=== PATIENT | female | born 1935 | race Caucasian/White ===

== ENCOUNTER → 2017-06-19 | Outpatient (CLI) | payer MEDICARE, BC, OTHER ==
[~2017-06-19] MED LIST: ACETAMINOPHEN-1 EAC1 PO; ALEVE220 M1 PO; ASPIRIN81 M2 PO; ATROVENT30 ML IH; AUGMENTIN 875-1 EACH PO; CEFPODOXIME PR200 M1 PO; CRESTOR10 MG PO; DOXYCYCLINE 10100 MG PO; DUONEB 2.5-0.5 M3 ML INH; GUAIFENESIN-CODE5 ML PO; IBUPROFEN 800800 M1 PO; KEFLEX500 M1 PO; KEFLEX500 MG PO; MELATONIN3 MG PO; MUCINEX TA600 MG/TA1 PO; MUCINEX600 MG; MUCINEX600 MG PO; NORCO 5-325 TA1 EACH PO; NYSTATIN100000 UNI PO; POTASSIUM20 OR; PREDNISONE 10 M10 MG PO; PREMARIN0.3 MG; PROAIR HFA8.5 GM; PROAIR HFA8.5 GM IH; PROBIOTIC1 EAC1 PO; PROTONIX40 M1 PO; RANITIDINE 150150 MG PO; SINGULAIR 10 MG10 M1; SINGULAIR 10 MG10 M1 PO; SYMBICORT160 MCG/4.; SYMBICORT160 MCG/4. INH; TESSALON PERLE100 MG PO; TRIAMTERENE-HC1 EAC1 PO; ZANTAC 150MG T150 M1 PO; ZOFRAN ODT4 MG PO; [UNRECOGNIZED DRUG - REMARK]
== END ==
LOC: M.WC 00:06
DX: S81.801D Unspecified open wound, right lower leg, subsequent encounter (principal); M19.90 Unspecified osteoarthritis, unspecified site; J43.9 Emphysema, unspecified; Z87.891 Personal history of nicotine dependence; Z90.710 Acquired absence of both cervix and uterus; Z98.49 Cataract extraction status, unspecified eye; X58.XXXD Exposure to other specified factors, subsequent encounter

== ENCOUNTER → 2017-06-26 | Outpatient (CLI) | payer MEDICARE, BC, OTHER | LOC: M.WC 01:54 | DX: S81.801D Unspecified open wound, right lower leg, subsequent encounter (principal); J43.9 Emphysema, unspecified; M19.90 Unspecified osteoarthritis, unspecified site; Z87.891 Personal history of nicotine dependence; Z90.710 Acquired absence of both cervix and uterus; X58.XXXD Exposure to other specified factors, subsequent encounter ==

== ENCOUNTER 2017-08-09 10:16 | Inpatient (IN) | payer MEDICARE, BC, OTHER ==
[~2017-08-09] VITALS: Ht 162.6 cm; Wt 77.6 kg
[~2017-08-09 10:16] MED LIST changes: -DOXYCYCLINE 10100 MG PO; -GUAIFENESIN-CODE5 ML PO; -MELATONIN3 MG PO; -MUCINEX600 MG PO; -NYSTATIN100000 UNI PO; -PROBIOTIC1 EAC1 PO; -TESSALON PERLE100 MG PO; -ZOFRAN ODT4 MG PO
[2017-08-09 10:30] VITALS: BP 138/72
[2017-08-09 11:04] LABS: ABSOLUTE BASOPHILS 0.1 thou/uL (0.0-0.2); ABSOLUTE EOSINOPHILS 0.1 thou/uL (0.0-0.7); ABSOLUTE LYMPHOCYTES 1.2 thou/uL (0.8-5.3); ABSOLUTE MONOCYTES 0.4 thou/uL (0.0-1.2); ABSOLUTE NEUTROPHILS 4.7 thou/uL (1.6-8.1); BASOPHILS 0.8 %; HEMATOCRIT 41.5 % (37.0-47.0); HEMOGLOBIN 14.1 gm/dL (12.0-15.0); LYMPHOCYTES 18.9 %; MCH 32.4 pg (26.0-34.0); MCHC 33.8 g/dL (28.0-37.0); MCV 95.6 fL (80.0-100.0); MONOCYTES 6.2 %; MPV 7.9 fl. (7.2-11.1); NUCLEATED RBCS 0 /100WBC; PLATELET COUNT* 233 thou/uL (150-400); POLYS 72.1 %; RBC 4.34 mil/uL (4.20-5.00); RDW-CV 13.1 % (10.5-14.5); WBC 6.6 thou/uL (4.0-11.0)
[2017-08-09 11:11] LABS: ANION GAP 7 mmol/L (7-16); BUN 10 mg/dL (7-18); CHLORIDE 101 mmol/L (98-107); CO2 31 mmol/L (21-32); CREATININE 0.9 mg/dL (0.6-1.3); GLUCOSE 106 mg/dL (70-99); POTASSIUM 3.3 mmol/L (3.5-5.1); SODIUM 139 mmol/L (136-145)
[2017-08-09 11:23] LABS: ALBUMIN 3.6 g/dL (3.4-5.0); ALKALINE PHOSPHATASE 145 U/L (46-116); NT-PRO BRAIN NAT PEPTIDE 193 pg/mL (<300); SGOT 132 U/L (15-37); SGPT 167 U/L (30-65); TOTAL BILIRUBIN 0.5 mg/dL (<0.1-1.0); TOTAL PROTEIN 6.8 g/dL (6.4-8.2); TROPONIN-I LEVEL <0.06 ng/mL (<0.06)
[2017-08-09 12:45] LABS: INFLUENZA A ANTIGEN None Detected (None Detect); INFLUENZA B ANTIGEN None Detected (None Detect)
[2017-08-09 15:41] VITALS: BP 139/61
[2017-08-09 15:55] VITALS: BP 152/60
--- NOTE | 2017-08-09 16:10 | EKG ---
[place] [address] ELECTROCARDIOGRAM REPORT Name: BRETT BAUMAN Room: [address] ADM IN M.R.#: [id number] Admission: 08/09/17 Attend Phys: Simone Cook Discharge: Date of : 37 Report #: [id number] THIS REPORT FOR: //name// 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 : 1935 Requested By: Facundo Baer Order Number: [id number] MD: Russ Reagan Measurements Intervals [place] Rate: 121 P: 64 IL: 152 QRS: 241 QRSD: 83 T: 61 QT: 324 QTc: 460 Interpretive Statements Sinus tachycardia Probable right ventricular hypertrophy Inferior infarct, old Compared to ECG 03/06/2015 16:47:17 Myocardial infarct finding now present Sinus rhythm no longer present Brett pike Electronically Signed On 08-09-2017 16:10:29 RODEO CLOWN by Russ Reagan [email or web address] <ELECTRONICALLY SIGNED> By: Russ Reagan MD, FACC 08/09/17 1610 1055 1055 Russ Reagan MD, [facility] /EPI
[2017-08-09 20:00] VITALS: BP 152/73
[2017-08-09] MEDS ORDERED: PROBIOTIC1 EAC1 PO (20:37)
[2017-08-09] MEDS ORDERED: MELATONIN3 MG PO (20:38)
[2017-08-09 23:26] VITALS: BP 161/92
[2017-08-10 04:29] VITALS: BP 141/48
[2017-08-10 07:40] VITALS: BP 97/58
[2017-08-10 09:03] LABS: CALCIUM 8.8 mg/dL (8.5-10.1); CREATININE 0.8 mg/dL (0.6-1.3); MAGNESIUM 2.1 mg/dL (1.8-2.4); POTASSIUM 3.6 mmol/L (3.5-5.1)
[2017-08-10 12:17] VITALS: BP 135/61
[2017-08-10 18:44] VITALS: BP 161/58
[2017-08-10 19:35] VITALS: BP 164/80
[2017-08-10 23:07] LABS: HEPATITIS B SURFACE AG Negative (Negative)
[2017-08-11] VITALS (7 sets, daily range): BP systolic 141–182; BP diastolic 67–78
[2017-08-11 05:39] LABS: ALBUMIN 3.1 g/dL (3.4-5.0); CALCIUM 8.9 mg/dL (8.5-10.1); CREATININE 0.8 mg/dL (0.6-1.3); POTASSIUM 3.9 mmol/L (3.5-5.1); TOTAL BILIRUBIN 0.2 mg/dL (<0.1-1.0); TOTAL PROTEIN 6.1 g/dL (6.4-8.2)
[2017-08-12 03:57] VITALS: BP 141/60
[2017-08-12 04:40] LABS: HEMATOCRIT 38.4 % (37.0-47.0); MCH 32.2 pg (26.0-34.0); MCHC 33.9 g/dL (28.0-37.0); MCV 95.2 fL (80.0-100.0); MPV 9.4 fl. (7.2-11.1); RBC 4.04 mil/uL (4.20-5.00); RDW-CV 13.2 % (10.5-14.5); WBC 12.7 thou/uL (4.0-11.0)
[2017-08-12 05:06] LABS: ALBUMIN 3.1 g/dL (3.4-5.0); CALCIUM 8.8 mg/dL (8.5-10.1); CREATININE 0.8 mg/dL (0.6-1.3); MAGNESIUM 2.2 mg/dL (1.8-2.4); TOTAL BILIRUBIN 0.3 mg/dL (<0.1-1.0); TOTAL PROTEIN 5.6 g/dL (6.4-8.2)
[2017-08-12 08:00] VITALS: BP 157/68
[2017-08-12 12:05] VITALS: BP 140/77
[2017-08-12 17:59] VITALS: BP 134/67
[2017-08-12 19:40] VITALS: BP 158/53
[2017-08-13] VITALS: BP 145/68
[2017-08-13 04:00] VITALS: BP 142/58
[2017-08-13 08:00] VITALS: BP 170/80
[2017-08-13 12:05] VITALS: BP 148/72
[2017-08-13 15:32] VITALS: BP 144/51
[2017-08-13 19:40] VITALS: BP 165/78
[2017-08-14] VITALS: BP 165/54
[2017-08-14 04:01] VITALS: BP 144/56
[2017-08-14 08:00] VITALS: BP 151/66
--- NOTE | 2017-08-14 09:09 | CON ---
[address] [address] CONSULTATION Name: BRETT BAUMAN Room: [address] IN .R.#: [id number] Admission: 08/09/17 Attend Phys: Simone Cook Discharge: Date of : 37 Report #: [id number] THIS REPORT FOR: //name// CC: Dr. Ana Soliz DATE OF SERVICE: 08/10/2017 REQUESTING PHYSICIAN: Nikko Soliz MD. REASON FOR CONSULTATION: COPD exacerbation. DISCUSSION: The patient is a pleasant 82-year-old woman who was admitted after presenting to the Emergency Department yesterday. She had been ill for the last 4-5 days. Developed cough, low-grade fevers. Was started on a Z-VALENTIN as an outpatient. She was having more trouble with her breathing, was seen in the Emergency Department. Was noted to have O2 saturations in the mid-80s. She was started on oxygen, had imaging studies done in the ED. Given her condition, she was admitted to the hospital. CT angiogram done of her chest was negative for pulmonary emboli. It did show extensive emphysematous changes. Noting, we were asked to see her. She is a former smoker, quitting about 8 years ago. Does have underlying COPD, but it is not clear if she has had any PFTs done in the past. She does not see a yarrow gatherer regularly, though our group has seen her previously when she has been hospitalized. Normally at home, she is on oxygen at night. Typically does not require it during the day. She has nebulizer as well as Symbicort twice a day. She has had her flu shot for the season. She has also had her Pneumovax. PAST MEDICAL HISTORY: COPD is noted. Also, has a history of paroxysmal atrial fibrillation, cataract surgery, cholecystectomy, appendectomy, prior hysterectomy, GERD, prior episodes of pneumonia and COPD exacerbation. No prior history of thromboembolic disease. SOCIAL HISTORY: Former smoker as noted. No smokers at home at this time. FAMILY HISTORY: Positive for COPD. REVIEW OF SYSTEMS: A 12-point ROS was done. No positives above. She denies having nausea, vomiting or diarrhea with this acute illness. She does note son did have a "cold" but he was not significantly ill. She has had no recent travel. No recent falls. Denies any syncopal episodes. Denies any palpitations or complaints of chest pain. No issues with lower extremity edema. PHYSICAL EXAMINATION: [place] [address] CONSULTATION Name: BRETT BAUMAN Room: [address]#: [id number] Admission: 08/09/17 Attend Phys: Simone Cook Discharge: Date of : 36 Report #: [id number] GENERAL APPEARANCE: A woman who looks stated age. Alert, cooperative. She is sitting up, has O2 running via nasal cannula. She is alert, conversant, able to speak in full sentences. HEENT: Head is normocephalic. Sclerae appear nonicteric. Mucous membranes a little dry, but no thrush is seen. NECK: Negative for adenopathy. No JVD is noted. HEART: Regular. She does have an occasional extrasystole noted. There is a grade 1/6 systolic murmur. No S3 is heard. LUNGS: Show breath sounds to be diminished. She has a prolonged expiratory phase. She does have a few faint late expiratory wheezes heard. Excursion is equal. No CVA tenderness. ABDOMEN: Soft, no appreciable hepatosplenomegaly. EXTREMITIES: She has no clubbing, does have some arthritic changes noted of her hands. Radial pulses are present. Lower extremities, skin turgor is fair. No calf tenderness. Moving all extremities. NEUROLOGIC: She is alert and oriented x 3. LABORATORY AND X-RAY FINDINGS: Did have a CT angiogram done of her chest as noted above. Negative for PE. No masses are seen. Emphysematous changes noted. On her chemistry, BUN is 10, creatinine 0.9, potassium was 3.3, alkaline phosphatase 145, ALT 167, albumin 3.6, AST 132. ProBNP 193. White blood cell count of 6600, hemoglobin 14.1, hematocrit of 41.5, platelets 233,000. Influenza screen was negative. IMPRESSION: 1. Chronic obstructive pulmonary disease exacerbation. Has already improved today relative to admission yesterday. No definite infiltrates noted on her chest x-ray or CT scan. Baseline, suspect she has at least moderate disease. 2. History of nocturnal hypoxemia. RECOMMENDATIONS: 1. Continue with her IV steroids, DuoNeb every 4 hours. She is on budesonide at this time. We will also add Brovana since she is on Symbicort at home. 2. Wean O2 during the day. 3. Hopefully will only require a couple of days of inpatient therapy. 4. Consider full PFTs in the future once she is over this acute event. <ELECTRONICALLY SIGNED> By: Treva Bashir MD 08/14/17 0909 0758 [id number] Shafer MD /nt
[2017-08-14] MEDS ORDERED: GUAIFENESIN-CODE5 ML PO (15:30)
[2017-08-14 15:31] VITALS: BP 151/66
[2017-08-14] MEDS ORDERED: TESSALON PERLE100 MG PO (15:31)
[2017-08-14 16:00] VITALS: BP 167/77
[2017-08-14 20:10] VITALS: BP 152/77
[2017-08-15] VITALS: BP 158/67
[2017-08-15 04:03] VITALS: BP 147/62
[2017-08-15 08:00] VITALS: BP 141/49
[2017-08-15 12:00] VITALS: BP 139/58
[2017-08-15] MEDS ORDERED: DOXYCYCLINE 10100 MG PO (12:15)
[2017-08-15] MEDS ORDERED: NYSTATIN100000 UNI PO (12:31)
[2017-08-15] MEDS ORDERED: PREDNISONE 10 M10 MG PO (12:41)
== END 2017-08-15 14:43 | disposition home or self-care (01) | DRG 441 ==
LOC: M.ERS 10:16 → M.2W 11:58 → M.TBA-ER 11:58 → M.2W 15:51
PROVIDERS: Emergency Medicine Emergency Medical Services; Internal Medicine; ADMIT Internal Medicine
DX: B17.9 Acute viral hepatitis, unspecified (principal); J96.21 Acute and chronic respiratory failure with hypoxia; J44.1 Chronic obstructive pulmonary disease with (acute) exacerbation; B37.0 Candidal stomatitis; R65.10 Systemic inflammatory response syndrome (SIRS) of non-infectious origin without acute organ dysfunction; K75.81 Nonalcoholic steatohepatitis (NASH); E87.6 Hypokalemia; I10 Essential (primary) hypertension; I48.0 Paroxysmal atrial fibrillation; K21.9 Gastro-esophageal reflux disease without esophagitis; M19.90 Unspecified osteoarthritis, unspecified site; Z90.710 Acquired absence of both cervix and uterus; Z90.89 Acquired absence of other organs; Z90.49 Acquired absence of other specified parts of digestive tract; Z98.49 Cataract extraction status, unspecified eye; Z87.01 Personal history of pneumonia (recurrent); Z79.899 Other long term (current) drug therapy; Z88.8 Allergy status to other drugs, medicaments and biological substances; Z87.891 Personal history of nicotine dependence; Z83.6 Family history of other diseases of the respiratory system

== ENCOUNTER 2017-10-03 17:00 | Inpatient (IN) | payer MEDICARE, BC, OTHER ==
[~2017-10-03] VITALS: Ht 157.5 cm; Wt 71.7 kg
[~2017-10-03 17:00] MED LIST changes: +DOXYCYCLINE 10100 MG PO; +GUAIFENESIN-CODE5 ML PO; +MELATONIN3 MG PO; +NYSTATIN100000 UNI PO; +PROBIOTIC1 EAC1 PO; +TESSALON PERLE100 MG PO
[2017-10-03 17:09] VITALS: BP 176/79
[2017-10-03 18:08] LABS: HEMATOCRIT 51.2 % (37.0-47.0); HEMOGLOBIN 17.3 gm/dL (12.0-15.0); MCH 32.3 pg (26.0-34.0); MCHC 33.7 g/dL (28.0-37.0); MPV 8.2 fl. (7.2-11.1); NUCLEATED RBCS 0 /100WBC; PLATELET COUNT* 256 thou/uL (150-400); RBC 5.33 mil/uL (4.20-5.00); RDW-CV 13.9 % (10.5-14.5); WBC 10.7 thou/uL (4.0-11.0)
[2017-10-03 18:16] LABS: CALCIUM 9.8 mg/dL (8.5-10.1); CREATININE 1.2 mg/dL (0.6-1.3)
[2017-10-03 18:18] LABS: POTASSIUM 3.8 mmol/L (3.5-5.1)
[2017-10-03 18:21] LABS: ALBUMIN 3.9 g/dL (3.4-5.0); TOTAL BILIRUBIN 0.8 mg/dL (<0.1-1.0); TOTAL PROTEIN 7.2 g/dL (6.4-8.2)
[2017-10-03 18:38] LABS: ABSOLUTE LYMPHOCYTES 0.2 thou/uL (0.8-5.3); ABSOLUTE MONOCYTES 0.3 thou/uL (0.0-1.2); ABSOLUTE NEUTROPHILS 10.2 thou/uL (1.6-8.1)
[2017-10-03 20:45] VITALS: BP 159/90
[2017-10-04] VITALS: BP 153/60
[2017-10-04 04:00] VITALS: BP 137/63
--- NOTE | 2017-10-04 06:23 | NUR ---
PT TO FLOOR 2100, A&O X4 CALM COOPERITVE. PAIN IN ABD, PARTIAL RELIEF NOTED WITH MEDICATION. ST ON THE MONITOR. FLUIDS. VITALS WNL. SEE MAR. SEE CHARTING. FALL PRECAUTIONS IN PLACE. HOURLY ROUNDING FOR SAFETY.
[2017-10-04 08:00] VITALS: BP 140/56
[2017-10-04 11:30] VITALS: BP 147/74
--- NOTE | 2017-10-04 14:34 | NUR ---
CM ASSESSMENT: Pt known to this CM from previous hospital stay. Pt is A&O. Resides at home with her . Independent with ADLs. Wears home o2 at [facility] only. No hx of HH or SNF. Supportive family, son is a nurse. Goal is to return home once medically stable for dc.
[2017-10-04 16:12] VITALS: BP 142/61
--- NOTE | 2017-10-04 17:45 | EKG ---
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 : 1935 Requested By: Osmar Paniagua Order Number: [id number] MD: Elliot Vicente Measurements Intervals [place] Rate: 119 P: 86 W[place]: 184 QRS: 240 QRSD: 86 T: 37 QT: 316 QTc: 445 Interpretive Statements Sinus tachycardia Right atrial enlargement Right ventricular hypertrophy Inferior infarct, old possible Baseline wander in lead(s) V6 Compared to ECG 08/09/2017 10:55:54 Atrial abnormality now present Myocardial infarct finding still present Electronically Signed On 10-04-2017 17:45:40 CDT by Elliot Vicente [email or web address] <ELECTRONICALLY SIGNED> By: Elliot Vicente MD, [facility] 10/04/17 1745 181 181 Elliot iVcente MD, [facility] /EPI
--- NOTE | 2017-10-04 18:14 | NUR ---
RECEIVED REPORT. ASSUMED CARE OF PT AROUND 0730. PT A&O X4, VSS. O2 SAT 94% ON RA. PT DROWSY THIS SHIFT AND HAS RESTED FREQUENTLY. MANAGER FIELD SERVICES IN PLACE TRACING SR TO ST WITH NO CHANGES THIS SHIFT. AM ASSESSMENT AND VITALS COMPLETED CHARTED. PT C/O NAUSEA TODAY AND RECEIVECD ZOFRAN X2 WITH PARTIAL RELIEF EACH TIME. PT ALSO REPROTED HEADACHE AND RECEIVED IV PAIN MEDICATION WITH RELIEF THIS AM. PT REPORTED RUQ PAIN THIS EVENING AND RECEIVED IV PAIN MEDICATION. PT ON CLEAR LIQUID DIET, BUT UNABLE TO KEEP EVERYTHING DOWN - HAS DRYHEAVED FREQUENTLY AND VOMITTED TWICE THIS SHIFT, SMALL AMOUNT OF EMESIS EACH TIME. PT UP TO BEDSIDE COMMODE WITH ASSIST X1 TO VOID, NO ISSUES. PT DID HAVE DIARRHEA THIS AFTERNOON MIXED WITH URINE - UNABLE TO OBTAIN STOOL SAMPLE. SON VISITED THIS AFTERNOON. PT CURRENTLY RESTING IN BED. CALL LIGHT IS WITHIN REACH. FALL PRECAUTIONS ARE IN PLACE. HOURLY ROUNDING PERFORMED. WCTM FOR DURATION OF SHIFT.
[2017-10-05 00:04] VITALS: BP 147/45
[2017-10-05 01:31] LABS: URINE BILIRUBIN NEGATIVE (Negative); URINE BLOOD TRACE (Negative); URINE CLARITY CLEAR; URINE COLOR YELLOW; URINE GLUCOSE-RANDOM NEGATIVE (Negative); URINE KETONES NEGATIVE (Negative); URINE LEUKOCYTES-REFLEX NEGATIVE (Negative); URINE NITRITE-REFLEX NEGATIVE (Negative); URINE PROTEIN NEGATIVE (Negative); URINE UROBILINOGEN 0.2 E.U./dl (0.2-1.0)
[2017-10-05 03:52] VITALS: BP 134/48
--- NOTE | 2017-10-05 05:44 | NUR ---
A&O X4 CALM COOPERITVE. REPORTS HEADACHE RELIEF NOTED WITH MEDICATION. SR ON THE MONITOR. STAND BY ASSIST. RA, PRN O2. FLUIDS. UA COLLECTED. VITALS WNL. SEE MAR. SEE CHARTING . FALL PRECAUTINS IN PLACE. HOURLY ROUNDING FOR SAFETY.
[2017-10-05 08:00] VITALS: BP 123/52
[2017-10-05 12:45] LABS: ABSOLUTE LYMPHOCYTES 0.7 thou/uL (0.8-5.3); ABSOLUTE MONOCYTES 0.3 thou/uL (0.0-1.2); ABSOLUTE NEUTROPHILS 2.4 thou/uL (1.6-8.1); BASOPHILS 0.5 %; HEMATOCRIT 35.8 % (37.0-47.0); LYMPHOCYTES 21.2 %; MCH 32.5 pg (26.0-34.0); MCHC 34.4 g/dL (28.0-37.0); MCV 94.6 fL (80.0-100.0); MONOCYTES 9.6 %; MPV 7.7 fl. (7.2-11.1); NUCLEATED RBCS 0 /100WBC; POLYS 67.7 %; RBC 3.78 mil/uL (4.20-5.00); RDW-CV 13.2 % (10.5-14.5); WBC 3.5 thou/uL (4.0-11.0)
[2017-10-05 12:49] VITALS: BP 145/57
[2017-10-05 12:52] LABS: HEMOGLOBIN 12.3 gm/dL (12.0-15.0); PLATELET COUNT* 176 thou/uL (150-400)
[2017-10-05 12:58] LABS: ALBUMIN 2.6 g/dL (3.4-5.0); CREATININE 0.8 mg/dL (0.6-1.3); TOTAL BILIRUBIN 0.3 mg/dL (<0.1-1.0); TOTAL PROTEIN 5.1 g/dL (6.4-8.2)
[2017-10-05 13:02] LABS: POTASSIUM 2.6 mmol/L (3.5-5.1)
[2017-10-05 16:00] VITALS: BP 140/62
--- NOTE | 2017-10-05 18:30 | NUR ---
RECEIVED REPORT. ASSUMED CARE OF PT AROUND 729. PT A&O X4. VSS O2 SAT 95% ON RA. MENTAL HEALTH ORDERLY IN PLACE TRACING SR WITH NO CHANGES THIS SHIFT. AM ASSESSMENT AND VITALS COMPLETED CHARTED. IV INTACT AND INFUSING IVF. PT CONTINUTED TO HAVE N/D TODAY. RECEIVED ZOFRAN WITH PARTIAL RELIEF. STOOL SAMPLE SENT DOWN TO LAB FOR CDIFF SCREEN. PENDING RESULTS. PT ABLE TO EAT A FEW BITES OF MEALS TODAY AND IS TOLERATING FLUIDS - HAS ONLY HAD A VERY MINIMAL AMOUNT OF EMESIS TODAY. GI CONSUTLED. PT REPORTED HEADACHE TODAY THAT HAS BEEN MANAGED WITH PO PAIN MEDICATION. PT UP WITH STANDBY ASSIST TO THE BEDSIDE COMMODE FREQUENTLY TO VOID AND HAVE DIARRHEA. PT TURNING SELF IN THE BED FOR COMFORT. SON VISITED THIS AFTERNOON. PT SLOWLY PROGRESSING. PT CURRENTLY RESTING IN BED. FALL PRECAUTIONS IN PLACE. CALL LIGHT IS WITHIN REACH. HOURLY ROUNDING PERFORMED. WCTM FOR DURATION OF SHIFT.
[2017-10-06 01:13] VITALS: BP 135/58
--- NOTE | 2017-10-06 01:16 | NUR ---
RECIEVED REPORT AT 1930. ASSESSMENT COMPLETED CHARTED. PT SLEEPING AT THIS TIME. REPLACED IV AND PLACED IT IN THE LEFT FOREARM, 22G. ABLE TO MAKE NEEDS KNOWN, CALL LIGHT WITHIN REACH, NO C/O PAIN OR SOA. UP WITH ASSIST, NOTIFIED TO COMMUNICATE WITH STAFF IF FEELING NAUSEOUS, PRN ZOFRAN GIVEN AT BEDTIME. WILL CONTINUE WITH PLAN OF CARE.
[2017-10-06 04:50] VITALS: BP 140/52
--- NOTE | 2017-10-06 07:15 | NUR ---
CHANGE OF SHIFT BEDSIDE REPORT GIVEN PATIENT SEEN AT BEDSIDE AND IN BED RESTING NO REQUESTS AT THIS TIME
[2017-10-06 07:52] LABS: MAGNESIUM 1.7 mg/dL (1.8-2.4)
[2017-10-06 08:00] VITALS: BP 138/56
[2017-10-06 08:10] LABS: POTASSIUM 3.9 mmol/L (3.5-5.1)
[2017-10-06 11:31] VITALS: BP 145/50
[2017-10-06 15:53] VITALS: BP 157/65
--- NOTE | 2017-10-06 18:35 | NUR ---
PATIENT IN BED AND WATCHING TV REMAINS A AND O X 4 SR/1ST DEGR AT TIMES LUNGS CTA/DIM IN BASES/RA FAIR APPETTIE MULTIPLE SMALL LOOSE BMS TODAY GOOD UO, APPROX 300CC+UNMEASURED AMT UP STANDBY OLD, HEALING SCAR L LE IV SITE INFILTRATED L AC, MOIST WARM PACK PLACED NEW IV 22 GA R FA IVF NS AT 100CC/HR C/O GENERALIZED PAIN TREATED HYDROCODONE WITH RELIEF C/O NAUSEA BUT PASSED, REF TREATMENT CALL LIGHT IN REACH AND INSTRUCTION GIVEN AND FOLLOWED GI CONS TODAY
[2017-10-07] VITALS: BP 135/60
--- NOTE | 2017-10-07 02:18 | NUR ---
RECEIVED REPORT AT 1930. ASSESSMENT COMPLETED CHARTED. PT C/O NAUSEA AND GENERALIZED PAIN AND GAVE PRN BEFORE BED. RIGHT AC RUNNING NS AT 100. CDIFF CULTURE CAME BACK NEGATIVE, ISOLATION NO LONGER NEEDED. WILL CONTINUE WITH PLAN OF CARE.
[2017-10-07 04:00] VITALS: BP 147/59
--- NOTE | 2017-10-07 07:15 | NUR ---
CHANGE OF SHIFT, BEDSIDE REPORT GIVEN ASSUMED PATIENT CARE PATIENT SEEN IN BED ASLEEP
[2017-10-07 08:00] VITALS: BP 121/52
[2017-10-07 12:15] VITALS: BP 140/56
[2017-10-07 15:37] VITALS: BP 138/66
--- NOTE | 2017-10-07 17:45 | NUR ---
PATIENT LAYING IN BED AND RESTING A AND O X 4 SR RA POOR APPETITE EMESIS X 1 MULTIPLE BM LOOSE CDIFF SPECIMEN SENT AND CAME BACK NEGATIVE FAIR UO UP STANDBY BSC IV NS AT 100CC/HR FLAGYL AND ROCEPHIN IVP C/O ALICEA THIS AM TREATED AND RELIEVED WITH HYDROCODONE CALL LIGHT IN REACH AND INSTRUCTION GIVEN AND FOLLOWED CONS GI
[2017-10-08] VITALS: BP 137/61
--- NOTE | 2017-10-08 02:07 | NUR ---
RECIEVED REPORT AT 1930. PT C/O NAUSEA AND GENERALIZED UNCOMFORT. ASSESSMENT COMPLETED CHARTED. PT STATES NAUSEA HAS GOTTEN WORSE SINCE BEING IN THE HOSPITAL. GAVE PRN NARCO AND ZOFRAN. PT IS A & O X 4, ABLE TO MAKE NEEDS KNOWN, PT RESTING IN BED AND HAS C/O HEADACHE OF YESTERDAY. WILL CONTINUE TO MONITOR AND WITH PLAN OF CARE.
[2017-10-08 03:57] VITALS: BP 152/60
[2017-10-08 05:08] LABS: HEMATOCRIT 35.2 % (37.0-47.0); HEMOGLOBIN 11.9 gm/dL (12.0-15.0); MCH 31.9 pg (26.0-34.0); MCHC 33.9 g/dL (28.0-37.0); MPV 8.5 fl. (7.2-11.1); RBC 3.74 mil/uL (4.20-5.00); RDW-CV 13.1 % (10.5-14.5); WBC 4.6 thou/uL (4.0-11.0)
[2017-10-08 05:29] LABS: CALCIUM 8.5 mg/dL (8.5-10.1); CREATININE 0.8 mg/dL (0.6-1.3); MAGNESIUM 1.7 mg/dL (1.8-2.4); POTASSIUM 3.4 mmol/L (3.5-5.1)
[2017-10-08 08:00] VITALS: BP 156/73
[2017-10-08 11:55] VITALS: BP 129/57
--- NOTE | 2017-10-08 15:01 | CON ---
[address] [address] CONSULTATION Name: BRETT BAUMAN Room: [address] IN .R.#: [id number] Admission: 10/03/17 Attend Phys: Simone Cook Discharge: Date of : 36 Report #: [id number] THIS REPORT FOR: //name// CC: Ismael Soliz MD DATE OF SERVICE: 10/06/2017 REQUESTING PHYSICIAN: Dr. Nikko Soliz. REASON FOR CONSULT: Nausea, vomiting and diarrhea. HISTORY OF PRESENT ILLNESS: This is an 82-year-old female who presented to the hospital with symptoms of nausea, vomiting, diarrhea and abdominal pain, which started at 8 a.m. before her admission. The patient reports that a week ago, her son who is a transplant patient was presented with similar symptoms and was hospitalized at . He is feeling back to normal. The patient denies any hematochezia, melena or hematemesis. She continues to have mild nausea and reports that she had 1 bowel movement this morning. The stool has been sent for C. diff and pending. PAST MEDICAL HISTORY: Significant for hypertension, COPD, AFib, history of gallbladder disease, status post cholecystectomy and appendectomy. ALLERGIES: SIGNIFICANT TO DIPHENHYDRAMINE, FLUTICASONE, NICOTINE, SOLU-MEDROL, MOXIFLOXACIN, AND EPINEPHRINE. MEDICATIONS: Please refer to hospital MAR. SOCIAL HISTORY: The patient lives at home. Denies tobacco or alcohol use. FAMILY HISTORY: Negative for GI malignancy. PHYSICAL EXAMINATION: VITAL SIGNS: Reveals blood pressure of 138/56, respirations 19, pulse 81, temperature 98.4. LUNGS: Clear. CARDIOVASCULAR: Regular. ABDOMEN: Soft, tender to palpation in all 4 quadrants. Bowel sounds are positive. NEUROLOGIC: The patient is alert and oriented x 3. LABORATORY DATA: Reveal sodium of 141, potassium 3.9, BUN is 7, creatinine 0.8, glucose 109. AST is 47, ALT is 28, alkaline phosphatase 37, lipase 53, total bilirubin is 0.3, albumin 2.6. WBC is 3.5 with hemoglobin of 12.3 [place] [address] CONSULTATION Name: BRETT BAUMAN Room: [address] IN [facility]#: [id number] Admission: 10/03/17 Attend Phys: Simone Cook Discharge: Date of : 36 Report #: [id number] 176. IMAGING: CT of abdomen and pelvis was obtained on her admission. There was fluid within the nondilated loops of small and large bowel suggesting enteritis and diarrhea. There was no evidence of obstruction. ASSESSMENT AND PLAN: The patient with acute symptoms of nausea, vomiting, diarrhea and abdominal pain whose son has gone through the similar symptoms a week ago. She most probably has viral gastroenteritis. She has been prophylactically started on IV antibiotics. She also has some electrolyte disturbance such as hyperkalemia. We will replace the potassium and give her IV fluids. I believe that she will improve in the next couple of days and possibly discharge home soon. We will continue to monitor her symptoms. <ELECTRONICALLY SIGNED> By: Skylar Arroyo MD 10/08/17 1501 1110 [id number] Arroyo MD /nt
[2017-10-08 15:16] VITALS: BP 143/68
--- NOTE | 2017-10-08 17:18 | NUR ---
PT UP IN ROOM WITH STEADY GAIT. PT DENIES DIARRHEA. MINIMAL AMT OF NAUSEA. TOLERATING PO WELL
[2017-10-08 20:00] VITALS: BP 166/76
[2017-10-09 00:03] VITALS: BP 158/56
--- NOTE | 2017-10-09 03:01 | NUR ---
PT ALERT ORIENTED. INITAL ASSESSMENT PT AGGITATED BECAUSE SHE HAD ASKED FOR A POPSICLE. [facility] NOTIFIED HOUSE SUP BUT CODE WAS CALLED OVERHEAD. SLUSH FROM [facility] PROVIDED. PT SEEMED SATISFIED WITH THAT. UP AD [place] IN ROOM. L ARM RED PT STATED IT WAS FROM IV INFILTRATE. ON RA. DENIES PAIN. NO BM THIS SHIFT. WILL CONTINUE TO MONITOR.
[2017-10-09 03:31] VITALS: BP 127/42
[2017-10-09 06:01] LABS: CALCIUM 9.1 mg/dL (8.5-10.1); CREATININE 0.7 mg/dL (0.6-1.3); POTASSIUM 3.9 mmol/L (3.5-5.1)
[2017-10-09 08:00] VITALS: BP 135/49
[2017-10-09] MEDS ORDERED: ZOFRAN ODT4 MG PO (09:42)
--- NOTE | 2017-10-09 10:58 | NUR ---
ASSUMED CARE OF PATIENT THIS AM AT 0730. PATIENT IS ALERT AND ORIENTED X 4. SHE C/O A HEADACHE THIS AM. PATIENT MEDICATED FOR HER HEAD ACHE. DR IN TO ROUND AND DISCHARGE ORDERS WERE WRITTEN. PATIENT IS TO DISCHARGE TO HOME.
[2017-10-09 12:25] VITALS: BP 135/49
[2017-10-09] MEDS ORDERED: MUCINEX600 MG PO (12:30)
== END 2017-10-09 13:25 | disposition home or self-care (01) | DRG 372 ==
LOC: M.ERS 17:00 → M.2W 18:43 → M.TBA-ER 18:43 → M.2W 20:54
PROVIDERS: Family Medicine; Internal Medicine; Physician Assistant; ADMIT Internal Medicine
DX: A04.9 Bacterial intestinal infection, unspecified (principal); R65.10 Systemic inflammatory response syndrome (SIRS) of non-infectious origin without acute organ dysfunction; E44.0 Moderate protein-calorie malnutrition; J44.9 Chronic obstructive pulmonary disease, unspecified; I10 Essential (primary) hypertension; I48.0 Paroxysmal atrial fibrillation; K21.9 Gastro-esophageal reflux disease without esophagitis; R00.0 Tachycardia, unspecified; E87.5 Hyperkalemia; E83.42 Hypomagnesemia; T37.8X5A Adverse effect of other specified systemic anti-infectives and antiparasitics, initial encounter; M19.90 Unspecified osteoarthritis, unspecified site; Z90.710 Acquired absence of both cervix and uterus; Z90.49 Acquired absence of other specified parts of digestive tract; Z98.49 Cataract extraction status, unspecified eye; Z88.1 Allergy status to other antibiotic agents; Z88.8 Allergy status to other drugs, medicaments and biological substances; Z87.891 Personal history of nicotine dependence; Z82.49 Family history of ischemic heart disease and other diseases of the circulatory system; Z91.81 History of falling; Z68.28 Body mass index [BMI] 28.0-28.9, adult

== ENCOUNTER → 2017-11-16 | Outpatient (CLI) | payer MEDICARE, BC, OTHER ==
[~2017-11-16] MED LIST changes: +MUCINEX600 MG PO; +ZOFRAN ODT4 MG PO
== END ==
LOC: M.LAB 01:30
DX: Z01.812 Encounter for preprocedural laboratory examination (principal); J44.9 Chronic obstructive pulmonary disease, unspecified

== ENCOUNTER 2020-07-05 17:47 | Inpatient (IN) | payer MEDICARE, BC ==
[~2020-07-05] VITALS: Ht 165.1 cm; Wt 68.3 kg
[2020-07-05 17:58] VITALS: BP 104/72
[2020-07-05] MEDS ORDERED: MONTELUKAST SODI4 M1 PO (18:31)
[2020-07-05] MEDS ORDERED: AZITHROMYCIN500 MG PO (18:32)
[2020-07-05] MEDS ORDERED: DEXAMETHASONE6 MG PO (18:32)
[2020-07-05] MEDS ORDERED: OMEPRAZOLE 20 M20 M1 PO (18:33)
--- NOTE | 2020-07-05 19:09 | NUR ---
UNSUCCESSFUL WITH IV ATTEMPTS PER 3 FARIDA RN AND PER [address] KIMBLE NOTIFIED. UNSUCCESSFUL IV ATTEMPTS PER DR KIMBLE X3 3 VIA ULTRASOUND. FULL NURSING REPORT GIVEN TO TANA MALLOY RN AND NOTIFIED OF UNSUCCESSFUL IV ATTEMPTS, VERBALIZED UNDERSTANDING
--- NOTE | 2020-07-05 19:25 | NUR ---
ATTEMPTING TO START IVAND DRAW LABS ON PT. IT WAS NOTED ON THE [facility]AL [place] THAT PT HAS HAD AN EKG CHANGE. REPEAT EKG COMPLETED AND CODE STEMI CALLED AT 194. CENTRAL LINE LEFT CHEST PLACED PER DR TRONCOSO, LABS COLLECTED AND SENT TO LAB. PT ATTACHED TO MONITOR AND REMAINS ON BIPAP. UNABLE TO START HEPARIN D/T NO IV ACCESS THAT WAS FUNCTIONING PRIOR TO GENERAL MAINTENANCE MECHANIC ARRIVAL.. XRAY HERE TO VERIFY PLACEMENT AND GENERAL MAINTENANCE MECHANIC ASKED THEM TO DO INLTHE GENERAL MAINTENANCE MECHANIC, PT DCD TO GENERAL MAINTENANCE MECHANIC ON [facility] AT 2044 VIA STRETCHER ON BIPAP AT THIS TIME.
[2020-07-05 20:47] LABS: HEMATOCRIT 47.9 % (37.0-47.0); HEMOGLOBIN 15.6 gm/dL (12.0-15.0); MCHC 32.6 g/dL (28.0-37.0); MCV 94.9 fL (80.0-100.0); MPV 10.2 fl. (7.2-11.1); NUCLEATED RBCS 0 /100WBC; PLATELET COUNT* 392 thou/uL (150-400); RBC 5.05 mil/uL (4.20-5.00); RDW-CV 13.8 % (10.5-14.5); WBC 15.2 thou/uL (4.0-11.0)
[2020-07-05 20:55] LABS: ANION GAP 19 mmol/L (7-16); BUN 80 mg/dL (7-18); CALCIUM 8.1 mg/dL (8.5-10.1); CHLORIDE 98 mmol/L (98-107); CO2 15 mmol/L (21-32); GLUCOSE 57 mg/dL (70-99); SODIUM 132 mmol/L (136-145)
[2020-07-05 20:59] LABS: APTT 40.4 Seconds (25.0-31.3); INR 3.1; PROTIME 30.6 Seconds (9.20-11.50)
[2020-07-05 21:06] LABS: ALBUMIN 2.2 g/dL (3.4-5.0); ALKALINE PHOSPHATASE 118 U/L (46-116); NT-PRO BRAIN NAT PEPTIDE > 35000 pg/mL (<300); SGOT 844 U/L (15-37); SGPT 654 U/L (30-65); TOTAL PROTEIN 5.1 g/dL (6.4-8.2)
[2020-07-05 21:21] LABS: ABSOLUTE LYMPHOCYTES 0.3 thou/uL (0.8-5.3); ABSOLUTE MONOCYTES 1.4 thou/uL (0.0-1.2); ABSOLUTE NEUTROPHILS 13.5 thou/uL (1.6-8.1)
[2020-07-05 21:22] LABS: PLATELET ESTIMATE ADEQUATE
[2020-07-05 21:30] VITALS: BP 106/70
[2020-07-05 22:04] LABS: BE -18.6 mmol/L (-2 to +3)
[2020-07-05 22:07] LABS: pH 7.174 (7.340-7.450)
[2020-07-05 22:08] LABS: PO2 269.7 mmHg (75.0-100.0)
[2020-07-05 22:43] VITALS: BP 105/87
[2020-07-05 22:53] VITALS: BP 61/39
[2020-07-06] VITALS (27 sets, daily range): BP systolic 55–156; BP diastolic 20–54
[2020-07-06 00:03] LABS: HEMATOCRIT 41.2 % (37.0-47.0); MCH 31.4 pg (26.0-34.0); MCHC 32.5 g/dL (28.0-37.0); MCV 96.6 fL (80.0-100.0); MPV 9.8 fl. (7.2-11.1); RBC 4.26 mil/uL (4.20-5.00); RDW-CV 13.7 % (10.5-14.5); WBC 13.3 thou/uL (4.0-11.0)
[2020-07-06 00:10] LABS: HEMOGLOBIN 13.4 gm/dL (12.0-15.0)
[2020-07-06 01:43] LABS: BE -23.2 mmol/L (-2 to +3); PCO2 35.7 mmHg (35.0-45.0)
[2020-07-06 01:45] LABS: pH 6.964 (7.340-7.450)
[2020-07-06 01:46] LABS: CALCIUM 6.6 mg/dL (8.5-10.1); CREATININE 2.2 mg/dL (0.6-1.3); PO2 166.8 mmHg (75.0-100.0)
[2020-07-06 01:48] LABS: POTASSIUM 6.3 mmol/L (3.5-5.1)
[2020-07-06 02:02] LABS: MAGNESIUM 2.7 mg/dL (1.8-2.4); PHOSPHORUS* 9.5 mg/dL (2.5-4.9)
[2020-07-06 05:00] LABS: HEMATOCRIT 39.6 % (37.0-47.0); HEMOGLOBIN 12.7 gm/dL (12.0-15.0); MCH 30.7 pg (26.0-34.0); RBC 4.12 mil/uL (4.20-5.00); RDW-CV 13.8 % (10.5-14.5); WBC 18.6 thou/uL (4.0-11.0)
[2020-07-06 05:13] LABS: ANION GAP 22 mmol/L (7-16); BUN 80 mg/dL (7-18); CALCIUM 7.5 mg/dL (8.5-10.1); CHLORIDE 101 mmol/L (98-107); CHOLESTEROL 80 mg/dL (<200); CO2 14 mmol/L (21-32); CREATININE 2.5 mg/dL (0.6-1.3); GLUCOSE 166 mg/dL (70-99); HDL CHOLESTEROL 11 mg/dL (>40); SODIUM 137 mmol/L (136-145); TC:HDL 7.3 Ratio (Not establshd); TRIGLYCERIDE 406 mg/dL (<150); VLDL 81 mg/dL (<40)
[2020-07-06 05:17] LABS: POTASSIUM 6.1 mmol/L (3.5-5.1); SERUM ASSESSMENT Clear
[2020-07-06 08:12] LABS: PCO2 38.6 mmHg (35.0-45.0); PO2 104.3 mmHg (75.0-100.0)
[2020-07-06 08:14] LABS: pH 7.052 (7.340-7.450)
[2020-07-06 08:32] LABS: HEMATOCRIT 30.6 % (37.0-47.0); MCHC 31.3 g/dL (28.0-37.0); MCV 98.9 fL (80.0-100.0); RBC 3.09 mil/uL (4.20-5.00); RDW-CV 14.4 % (10.5-14.5); WBC 13.7 thou/uL (4.0-11.0)
--- NOTE | 2020-07-06 08:32 | CON ---
[address] [address] CONSULTATION Name: BRETT BAUMAN Room: [address] ADM IN M.R.#: [id number] Admission: 07/05/20 Attend Phys: Perla Varela MD Discharge: Date of : 36 Report #: [id number] THIS REPORT FOR: cc: Stewart Astudillo MD, James MD ~ Meet Foster MD [facility] DATE OF SERVICE: 07/05/2020 HISTORY OF PRESENT ILLNESS: The patient is an 85-year-old white female who I was asked to see in the Emergency Room today after she was noted to have an abnormal ECG. The history is obtained from the patient as well as some old records. The patient was actually admitted here in 2014 with atypical chest pain. She had a history of COPD. She ruled out for a myocardial infarction. She was admitted here in 2018 with COPD exacerbation. She also had pneumonia. The patient was last admitted here in 2018 with pneumonia. She was noted to have permanent atrial fibrillation. The patient was brought to the Emergency Room this evening. She was COVID positive and brought by paramedics. She complained of shortness of breath. She was at [facility]. She became hypoxic and was transferred to the Emergency Room. She was noted to have abnormal EKG. Cardiology consultation was requested. She denies any chest pain, but does complain of shortness of breath and cough. She has had no edema. PAST MEDICAL HISTORY: Significant for hysterectomy, tonsillectomy, appendectomy, cholecystectomy, cataract surgery. She has a history of hypertension, COPD, paroxysmal atrial fibrillation. MEDICATIONS: On admission included omeprazole, aspirin, Crestor, albuterol inhaler. She is no longer on ranitidine, nystatin. ALLERGIES: SHE HAS AN ALLERGY TO NICOTINE AND BENADRYL. SOCIAL HISTORY: She no longer smokes. REVIEW OF SYSTEMS: Cannot be obtained. PHYSICAL EXAMINATION: GENERAL: Revealed an elderly, frail-appearing female, lying in bed. She appeared in moderate respiratory distress. VITAL SIGNS: She had a blood pressure of only 100/60, pulse is 110. She was afebrile. HEENT: She was anicteric. Conjunctivae pink. Mucous membranes were dry. NECK: Veins do not appear distended. CHEST: Revealed distant breath sounds. CARDIOVASCULAR: Regular rate and [place] [address] CONSULTATION Name: BRETT BAUMAN Room: [address]#: [id number] Admission: 07/05/20 Attend Phys: Perla Varela MD Discharge: Date of : 36 Report #: [id number] ABDOMEN: Soft. EXTREMITIES: Had no pitting edema. SKIN: Cool and dry. LABORATORY DATA: Her ECG on admission showed sinus tachycardia, evidence of previous inferior infarction with ST segment elevation in lead V4, V5, V6 as well as V2, V3 and aVF that was new since 2017. She actually had an echocardiogram done in 2015 here at [place] that showed ejection fraction 55%, no significant valvular abnormalities. Her chest x-ray tonight showed normal heart size, hyperinflated lung santoro, consolidation of the lung base, atherosclerosis noted in the aorta. LABORATORY WORK: Her lab work tonight, sodium 132, potassium is 6.0, BUN 80, creatinine 2.0, SGOT 844, SGPT 654. Albumin 2.2. Troponin 0.24. BNP 28. Her NT-proBNP was 35,000. Her white blood cell count was 15.2, hemoglobin 15.6. Her COVID antigen stat test was positive. IMPRESSION AND RECOMMENDATIONS: 1. Abnormal ECG. Recommend urgent cardiac catheterization. 2. Chronic obstructive pulmonary disease. 3. Acute kidney failure. 4. Hyperkalemia. 5. Elevated liver function studies. 6. Hypertension. Suspect sepsis. 7. COVID-19. 8. History of paroxysmal atrial fibrillation. The critical care time spent on this patient was from 09:15 to 10:30. <ELECTRONICALLY SIGNED> By: Meet Foster MD, [facility] 07/06/20 0832 2216 0022Daviarun Foster MD, FAC /nt
[2020-07-06 08:33] LABS: HEMOGLOBIN 9.6 gm/dL (12.0-15.0)
--- NOTE | 2020-07-06 08:36 | NUR ---
PATIENT TO UNIT FROM [facility] AT 2225. PATIENT HYPOTHERMIC, TACHYCARDIC, AND HYPOTENSIVE UPON ARRIVAL. ON BIPAP ON ADMISSION. PATIENT HAS REQUIRED INCREASED DOSES OF VASOPRESSOR SUPPORT TO MAINTAIN BLOOD PRESSURE. FEMORAL SHEATH LEFT IN AFTER CATH PROCEDURE, BEING USED TO MONITOR ARTERIAL BLOOD PRESSURE. PATIENT CANNOT MAINTAIN BLOOD PRESSURE WELL. CURRENT TITRATIONS ON MEDICATIONS ARE LEVOPHED AT 2 MCG/MIN, NEOSYNEPHRINE AT 360 MCG/MIN, DOPAMINE AT 20 MCG/KG/MIN, AND VASOPRESSIN AT 0.04 UNITS/MIN. UNABLE TO KEEP ACCURATE TITRATION RECORD DUE TO PATIENT INSTABILITY. PATIENT HAD TO BE EMERGENTLY INTUBATED AT MIDNIGHT DUE TO DETERIORATING RESPIRATORY STATUS. ATTEMPTED TO CALL OVERNIGHT BUT COULD NOT GET AHOLD OF ANY FAMILY MEMBERS. PATIENT MOTTLED ON ALL EXTREMITIES AND ON TORSO. LIPS AND TOUNGUE TURNING BLACK. [facility] CALLED AT THE END OF SHIFT AND REFERRAL MADE
[2020-07-06 08:53] LABS: CALCIUM 6.8 mg/dL (8.5-10.1); CREATININE 2.6 mg/dL (0.6-1.3); MAGNESIUM 2.7 mg/dL (1.8-2.4)
--- NOTE | 2020-07-06 08:53 | NUR ---
0700 ASSUMED CARE OF PATIENT. SEE DOCUMENTED ASSESSMENT.PT ON 4 PRESSORS AND UNRESPONSIVE. ANURIC
[2020-07-06 08:55] LABS: POTASSIUM 7.7 mmol/L (3.5-5.1)
--- NOTE | 2020-07-06 10:26 | NUR ---
QRS WIDENING OUT. HAVE TALKED TO SPOUSE TWICE AND HE WANTS US TO TRY TO CODE HER AT LEAST ONCE.
--- NOTE | 2020-07-06 10:27 | NUR ---
TO CT. PT WILL GO TO ROOM 219. REPORT CALLED TO BALDEV BURCIAGA
--- NOTE | 2020-07-06 11:13 | NUR ---
1100 CODE CALLED FOR PEA
[2020-07-06 11:57] LABS: BE -18.5 mmol/L (-2 to +3); PO2 103.7 mmHg (75.0-100.0)
--- NOTE | 2020-07-06 11:58 | 2DMMODE ---
[place] [address] 2 D/M-MODE ECHOCARDIOGRAM Name: BRETT BAUMAN Room: [address] IN [facility]#: [id number] Admission: 07/05/20 Attend Phys: Perla Varela, Discharge: Date of : 37 Date of Service: 07/06/20 1158 Report #: [id number] THIS REPORT FOR: cc: Stewart Astudillo MD, James MD Blick,Meet Garces MD [facility] ~ APPROVED REPORT Study performed: 07/06/2020 09:19:50 EXAM: Comprehensive 2D, Doppler, and color-flow Echocardiogram Patient Location: In-Patient Room #: 001 Status: routine BSA: 1.75 HR: 116 bpm BP: 73/35 mmHg Rhythm: Tachycardia Other Information Study Quality: Adequate Indications Acute TX 2D Dimensions IVSd: 15.42 (7-11mm) LVOT Diam: 19.96 (18-24mm) LVDd: 21.31 mm PWd: 17.06 (7-11mm) Ascending Ao: 29.15 (22-36mm) LVDs: 18.91 (25-40mm) Aortic Root: 28.26 mm Volumes Left Atrial Volume (Systole) LA ESV Index: 6.70 mL/m2 Aortic Valve AoV Peak Wil.: 1.37 m/s AO Peak Gr.: 7.50 mmHg LVOT Max P.77 mmHg AO Mean Gr.: 3.27 mmHg LVOT Mean P.01 mmHg LVOT Max V: 0.67 m/s AO V2 VTI: 13.27 cm LVOT Mean V: 0.47 m/s SAADIA (VTI): 2.20 cm2 LVOT V1 VTI: 9.34 [place] [address] 2 D/M-MODE ECHOCARDIOGRAM Name: BRETT BAUMAN Room: [address]#: [id number] Admission: 07/05/20 Attend Phys: Perla Varela, Discharge: Date of : 37 Date of Service: 07/06/20 1158 Report #: [id number] Mitral Valve E/A Ratio: 0.85 MV Decel. Time: 96.40 ms MV E Max Wil.: 0.52 m/s MV PHT: 27.96 ms MVA (PHT): 7.87 cm2 Pulmonary Valve PV Peak Wil.: 0.92 m/s PV Peak Gr.: 3.36 mmHg Left Ventricle The left ventricle is normal size. There is normal LV segmental wall motion. Moderate concentric left ventricular hypertrophy. Left ventricular systolic function is borderline. LVEF is 50-55%. Grade I - abnormal relaxation pattern. Right Ventricle The right ventricle is normal size. The right ventricular systolic function is normal. Atria The left atrium size is normal. The right atrium size is normal. Aortic Valve The Aortic valve is sclerotic. No aortic regurgitation is present. There is no aortic valvular stenosis. Mitral Valve The mitral valve is normal in structure. There is no mitral valve regurgitation noted. No evidence of mitral valve stenosis. Tricuspid Valve The tricuspid valve is normal in structure. There is trace tricuspid valve regurgitation noted. Pulmonic Valve The pulmonary valve is normal in structure. There is no pulmonic valvular regurgitation. Great Vessels The aortic root is normal in size. IVC is normal in size and collapses >50% with inspiration. Pericardium Mildl pericardial [place] [address] 2 D/M-MODE ECHOCARDIOGRAM Name: BRETT BAUMAN Room: [address] IN ..#: [id number] Admission: 07/05/20 Attend Phys: Perla Varela, Discharge: Date of : 37 Date of Service: 07/06/20 1158 Report #: [id number] <Conclusion> Moderate concentric left ventricular hypertrophy. LVEF is 50-55%. The Aortic valve is sclerotic. Mildl pericardial effusion. <ELECTRONICALLY SIGNED> By: Meet Foster MD, [facility] 07/06/20 1158 1158 1158 Meet Foster MD, FACC /INF
[2020-07-06 12:00] LABS: pH 7.111 (7.340-7.450)
--- NOTE | 2020-07-06 13:21 | NUR ---
PT CODED AGAIN AND PRONOUNCED BY DR PRECIADO. SEE CODE BLUE SHEET.
--- NOTE | 2020-07-06 13:33 | EKG ---
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 : 1935 Requested By: Facundo Baer Order Number: [id number] MD: Meet Foster Measurements Intervals [place] Rate: 126 P: 91 MS: 146 QRS: 209 QRSD: 76 T: 60 QT: 288 QTc: 417 Interpretive Statements Sinus tachycardia Consider inferior infarct Anterolateral infarct, possibly acute ST elevation, consider inferior injury Compared to ECG 10/03/2017 18:10:56 ST (T wave) deviation now present Myocardial infarct finding still present Myocardial infarct finding still present Electronically Signed On 07-06-2020 13:33:26 PHYSICIAN PRIMARY [employer]ORTS MEDICINE by Meet Foster [email or web address] <ELECTRONICALLY SIGNED> By: Meet Foster MD, [facility] 07/06/20 1333 1808 1808 Meet Foster MD, [facility] /EPI
--- NOTE | 2020-07-06 13:35 | EKG ---
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: : 1935 Requested By: Facundo Baer Order Number: [id number] [place] MD: Meet Foster Measurements Intervals [place] Rate: 121 P: 33 UT: 139 QRS: 210 QRSD: 72 T: 59 QT: 301 QTc: 427 Interpretive Statements Sinus tachycardia Consider inferior infarct Anterolateral infarct, recent ST elevation, consider inferior injury Compared to ECG 07/05/2020 18:08:48 No significant changes Electronically Signed On 07-06-2020 13:34:53 CREDIT BALANCE SPECIALIST by Meet Foster [email or web address] <ELECTRONICALLY SIGNED> By: Meet Foster MD, [facility] 07/06/20 1334 54 54 Meet Foster MD, [facility] /EPI
--- NOTE | 2020-07-07 08:59 | CON ---
[address] [address] CONSULTATION Name: BRETT BAUMAN Room: [address] IN [facility].#: [id number] Admission: 07/05/20 Attend Phys: Perla Varela MD Discharge: 07/06/20 Date of : 37 Report #: [id number] THIS REPORT FOR: cc: Stewart Astudillo MD, James MD ~ Tona Velez MD DATE OF SERVICE: 07/06/2020 NEPHROLOGY CONSULTATION CONSULTING PHYSICIAN: Dr. Travis. REASON FOR NEPHROLOGY CONSULTATION: Hyperkalemia, metabolic acidosis, anuric, acute kidney injury. REASON FOR ADMISSION: Hypoxia. HISTORY OF PRESENT ILLNESS: This is an 85-year-old female who lives in a nursing facility, was brought in because of hypoxia. She was also found to have abnormal EKG. She has a history of COPD, also recent pneumonia, and recently diagnosed with COVID, also has a history of atrial fibrillation. Apparently, she was at [facility] last week and was discharged and at that time was not using any oxygen, but became very hypoxic and hence brought to the hospital yesterday. She was found to have elevated troponin, was having some chest pain with hypoxia, was taken for urgent cardiac catheterization but her coronaries were clean and no intervention was needed. The patient apparently was very hemodynamically unstable. She is currently on 4 vasopressors, intubated and sedated, not making any urine, has significant lactate buildup with the last lactate level of 14.9, pH of 7.052, potassium of 6.1 and is not making any urine. She also has evidence of shock liver. COVID testing came back positive again. Apparently at the [place] [facility], she is taking triamterene and hydrochlorothiazide as well as diclofenac. Her abdominal x-ray showed ileus. Her entire body is showing mottling and cyanosis. Her tongue also looks cyanotic. ALLERGIES: TO NICOTINE, EPINEPHRINE, MOXIFLOXACIN, BENADRYL. PAST MEDICAL AND SURGICAL HISTORY: Includes hysterectomy, tonsillectomy, appendectomy, cholecystectomy, cataract surgery. She has a history of hypertension, COPD, paroxysmal atrial fibrillation, recent COVID positive. REVIEW OF SYSTEMS: Could not be done because she is intubated and sedated. MEDICATIONS: We do not have an accurate medication list, [place] [address] CONSULTATION Name: BRETT BAUMAN Room: [address]#: [id number] Admission: 07/05/20 Attend Phys: Perla Varela MD Discharge: 07/06/20 Date of : 37 Report #: [id number] was possibly on diclofenac, triamterene and hydrochlorothiazide, also montelukast, dexamethasone, azithromycin, omeprazole, aspirin which is baby aspirin, rosuvastatin, albuterol, budesonide, formoterol, Symbicort, melatonin, and Mucinex. PHYSICAL EXAMINATION: VITAL SIGNS: Blood pressure is 103/42, temperature was 36.2, pulse rate is 110, respiratory rate is 20, pulse ox is 91%. She is on 80% FiO2. GENERAL: She is currently intubated and sedated. HEAD AND EYES: Atraumatic, normocephalic. Conjunctivae was normal. EARS, NOSE, AND THROAT: Normal ears and nose. ET tube in place and tongue looks cyanotic. NECK: No JVD. CHEST: Bilaterally diminished breath sounds. No crackles heard. CARDIOVASCULAR: S1, S2 normal. No murmurs. ABDOMEN: Soft, cyanotic, not distended. There were no bowel sounds. EXTREMITIES: Lower extremities, there is no lower extremity edema. SKIN: Overall mottling and cyanosis. NEUROLOGICAL FUNCTION: Currently intubated and sedated. PSYCHIATRIC: Not able to assess. LABORATORY DATA: WBC 13.7, hemoglobin is 9.6, and platelet count is 131. Her last sodium is 137, potassium is 7.7, CO2 is 12, BUN is 72 and creatinine is 2.6. Her lactate is 19. CK is pending. Magnesium was 2.7, phosphorus was 9. Troponin was 0.6 and other labs were reviewed. IMAGING: Chest x-ray, abdominal x-ray were reviewed. ASSESSMENT: 1. Acute kidney injury, anuric in the setting of septic shock, which is in the setting of COVID infection. Her baseline creatinine is not known, but we do know that in 2018, her creatinine was 0.7. She comes in with a creatinine of 2.0, which is rising and it is 2.7 now. She is anuric, so UA could not be checked. Renal imaging has been ordered. 2. Type 2 myocardial infarction in the setting of COVID-19 infection. 3. Septic shock. She is on 4 vasopressors. 4. Hyperkalemia in the setting of acute kidney injury. 5. Significant high anion gap metabolic acidosis in the setting of sepsis, septic shock, lactic acidosis and acute kidney injury. 6. Shock liver. 7. Hyperphosphatemia. 8. Hypermagnesemia. 9. Abnormal EKG. Coronaries were clean on cardiac catheterization. 10. COVID positive recently diagnosed a few days ago. [place] [id number] CONSULTATION Name: BRETT BAUMAN Room: [address]#: [id number] Admission: 07/05/20 Attend Phys: Perla Varela MD Discharge: 07/06/20 Date of : 37 Report #: [id number] 11. Ileus. PLAN: 1. Unfortunately, at this point, she is not doing well and I do not think she is going to survive this hospitalization, she is too unstable for dialysis and her prognosis is very poor. May continue the bicarbonate drip for now, but she is not making any urine and her lactate is rising and the last potassium was 7.7. 2. Discussed with Dr. Travis as well as patient's nurse, from nephrology standpoint, there is nothing else that I can add. Thank you for letting me participate in the patient's care. <ELECTRONICALLY SIGNED> By: Tona Velez MD 07/07/20 [phone] [id number] Velez MD /nt
--- NOTE | 2020-07-07 11:26 | CARD ---
[address] [address] CARDIAC CATH REPORT Name: BRETT BAUMAN Room: [address]#: [id number] Admission: 07/05/20 Attend Phys: Perla Varela MD Discharge: 07/06/20 Date of : 37 Report #: [id number] THIS REPORT FOR: cc: Stewart Astudillo MD, James MD ~ Meet Foster MD [facility] ADDENDUM APPROVED REPORT Study performed: 07/05/2020 20:35:17 Patient Details Patient Status: ED Room #: The patient is a 85 year-old female Event Personnel Meet Foster Solar Technician, Linnea Dempsey RN Claim Processing Specialist, Jackie Farley RN Monitor, Simone Craig RTR Scrub Procedures Performed Art Access - R femoral artery* Left Heart Cath w/or w/o Coronaries Indication Abnormal ECG, Non-STEMI , Dyspnea Risk Factors Chronic Lung Disease, Hypertension Admission/Lab Medications/Medications given during procedure Heparin Unfract. Procedure Narrative The patient was brought emergently to the Cardiac Catheterization Laboratory and was prepped and draped in a sterile manner. The right femoral was infiltrated with 2% Lidocaine subcutaneous anesthesia. The right femoral accessed via ultrasound guidance. A 6 Fr. sheath was inserted into the right femoral artery. Coronary angiography was performed using coronary diagnostic catheters. The right coronary system was accessed and visualized with a 6F JR4 catheter. The left coronary system was accessed and visualized with a 6F JL4 catheter. Left ventricular/Aortic Valve gradient assessed via catheter pullback. The patient tolerated the procedure well and there were no complications associated with the procedure. [place] [address] CARDIAC CATH REPORT Name: BRETT BAUMAN Room: [address]#: [id number] Admission: 07/05/20 Attend Phys: Perla Varela MD Discharge: 07/06/20 Date of : 37 Report #: [id number] Attempted procedure from the right and left femoral artery. Because of hypotension, unable to palpate a femoral pulse. Unable to locate femoral arteries with a percutaneous needle. Attempted from the [facility] radial artery, but again the pulse could not be felt, and unable to locate the radial artery with a percutaneous needle. Attempted the procedure from the right femoral artery using ultrasound guidance. Was able to place a sheath in the [facility] femoral artery. Hypotension was noted and the patient was started on IV neosynephrine. Sheath was sutured in place at the end of the procedure. Intraoperative Conscious Sedation Sedation start time: 21:00 Case end Time: 22:20 No sedation given. Fluoro Time: 1.4 minutes Dose: DAP 9442 cGycm2 248 mGy Contrast Type and Amount: Visipaque 80 ml Coronary Angiography The patient's coronary anatomy is right dominant. [place] Artery Percent Stenosis Left Main: 0 % Prox LAD: 0 % Mid/Distal LAD: 0 % Circumflex: 0 % RCA: 0 % Ramus: % Left Ventriculography Left Ventriculography was not performed. Hemodynamics The aortic pressure is 53/32 mmHg with a mean of 39 mmHg. The left ventricular pressure is 62/10 mmHg with a mean of mmHg. The left ventricular end diastolic pressure is 12 mmHg. There was no gradient across the aortic valve upon pullback. Pullback from the left ventricle to the aorta revealed no gradient across the aortic valve. Conclusion 1. no significant CAD 2. [place] [address] CARDIAC CATH REPORT Name: BRETT BAUMAN Room: [address]#: [id number] Admission: 07/05/20 Attend Phys: Perla Varela MD Discharge: 07/06/20 Date of : 37 Report #: [id number] Recommendations check echo <ELECTRONICALLY SIGNED> By: Meet Foster MD, FACC 07/07/20 1126 25 [id number] Foster MD, FACGelacio /INF
== END 2020-07-06 12:54 | DRG 871 ==
LOC: M.ERS 17:47 → M.TBA-ER 19:02 → M.ICU 19:02
PROVIDERS: Emergency Medicine Emergency Medical Services; Internal Medicine Cardiovascular Disease; Internal Medicine Critical Care Medicine; Personal Emergency Response Attendant; ADMIT Internal Medicine; ATTEND Internal Medicine
PROC: 5A1935Z Respiratory Ventilation, Less than 24 Consecutive Hours (ICD-10-PCS; principal; 2020-07-05)
PROC: 0BH18EZ Insertion of Endotracheal Airway into Trachea, Via Natural or Artificial Opening Endoscopic (ICD-10-PCS; principal; 2020-07-05)
PROC: 4A023N7 Measurement of Cardiac Sampling and Pressure, Left Heart, Percutaneous Approach (ICD-10-PCS; principal; 2020-07-05)
PROC: B2111ZZ Fluoroscopy of Multiple Coronary Arteries using Low Osmolar Contrast (ICD-10-PCS; principal; 2020-07-05)
PROC: 5A09357 Assistance with Respiratory Ventilation, Less than 24 Consecutive Hours, Continuous Positive Airway Pressure (ICD-10-PCS; principal; 2020-07-05)
PROC: XW033E5 Introduction of Remdesivir Anti-infective into Peripheral Vein, Percutaneous Approach, New Technology Group 5 (ICD-10-PCS; 2020-07-06)
DX: A41.89 Other specified sepsis (principal); U07.1 COVID-19; I21.A1 Myocardial infarction type 2; R65.21 Severe sepsis with septic shock; K72.00 Acute and subacute hepatic failure without coma; N17.0 Acute kidney failure with tubular necrosis; J12.82 Pneumonia due to coronavirus disease 2019; J96.20 Acute and chronic respiratory failure, unspecified whether with hypoxia or hypercapnia; K56.7 Ileus, unspecified; J44.9 Chronic obstructive pulmonary disease, unspecified; K21.9 Gastro-esophageal reflux disease without esophagitis; I48.0 Paroxysmal atrial fibrillation; R79.89 Other specified abnormal findings of blood chemistry; I10 Essential (primary) hypertension; E87.5 Hyperkalemia; E83.39 Other disorders of phosphorus metabolism; E83.41 Hypermagnesemia; M19.90 Unspecified osteoarthritis, unspecified site; Z90.710 Acquired absence of both cervix and uterus; Z90.49 Acquired absence of other specified parts of digestive tract; Z88.1 Allergy status to other antibiotic agents; Z98.49 Cataract extraction status, unspecified eye; Z79.82 Long term (current) use of aspirin; Z79.899 Other long term (current) drug therapy; Z88.8 Allergy status to other drugs, medicaments and biological substances